=== PATIENT | female | born 1945 | race Caucasian/White ===

== ENCOUNTER 2018-05-02 19:24 | Emergency (ER) | payer BC ==
--- NOTE | 2018-05-02 19:36 | NUR ---
CALLED PT X3. NO ONE RESPONSED AT THIS TIME. WILL FOLLOW UP.
--- NOTE | 2018-05-02 20:10 | NUR ---
CALLED PT X3. NO ONE RESPONSED AT THIS TIME. WILL FOLLOW UP.
--- NOTE | 2018-05-02 20:56 | NUR ---
PER ADMITTING PT LEFT.
== END 2018-05-02 21:00 | disposition left against medical advice (07) ==
LOC: ER 19:28
DX: Z53.21 Procedure and treatment not carried out due to patient leaving prior to being seen by health care provider (principal)